=== PATIENT | female | born 1985 | race American Indian/Alaskan Native ===

== ENCOUNTER 2017-05-05 01:30 | Day surgery (SDC) | payer OTHER ==
[2017-05-05 02:12] VITALS: BP 109/70; TEMP 98.3; BMI 33.8
[2017-05-05 03:17] LABS: Bilirubin Small (Negative); Blood, Urine Negative (Negative); Clarity CLEAR (Clear); Glucose, Urine (Dipstick) Negative (Negative); Leukocyte Negative (Negative); Nitrite Negative (Negative); Protein, Urine (Dipstick) Trace mg/dL (Neg-Trace); Specific Gravity, Urine 1.035 (1.002-1.036)
[2017-05-05 03:22] LABS: Bacteria/HPF None Seen HPF (None Seen); Hyaline Casts/LPF 7-10 HYALINE CAST LPF (0-3 Hyaline); Pathc Cast-AUWi Flag 2.03 (0-2.49); RBC/HPF 0-3 HPF (0-3); Squamous Epithelial 0-3 HPF (0-3); WBC/HPF 0-3 HPF (0-3)
--- NOTE | 2017-05-05 03:28 | PDOC.LDHP ---
Labor and Delivery H&P Chief complaint: decreased movement HPI: Armando Gallardo is a 29 yo F at 36.3 weeks by first trimester U/S who presents today for decreased movement. She was seen at the [facility] yesterday, 05/04/17 , and it was recommended that she come to [facility] L&D for BPP and NST. Patient states that she has not felt the baby move in 2 days. She denies contractions, LOF, vaginal bleeding, or discharge. She did endorse 5 days of burning with urination. No fevers, upper respiratory symptoms. Upon arriving to the L&D, she states that she is now feeling the baby move around more. Current gestational age (weeks): 36 (36.3) Due date: 05/31/17 Dating criteria: first trimester ultrasound Grav: 4 Para: 2 OB History Details: Patient has had two prior sections and one AB. This has been unremarkable, she has had normal first and second trimester Ultrasounds and inital OB labs were all normal. She is scheduled for repeat section on 05/26 at 0730. Current complications: none Abnormal US findings: No Past Medical History: None Current medications: none Previous surgical history: low tranverse CS (X2) Social history: none - Physical Exam Vital signs reviewed and normal: yes General: NAD, resting Heart: RRR Lungs: CTAB Abdomen: NTTP Extremeties: no edema FHT: category 1 [place] contractions every: one contraction in a 20 min strip - OB Labs Blood type: A RH: positive Antibody Screen: negative HIV: negative RPR: negative HEPSAg: negative GBS: unknown Rubella: immune - Assessment Decreased movement - Plan Plan: observation in L&D (We will observe patient, get NST and BPP, check a UA due to dysuria.) <Neto Harris - Last Filed: 05/05/17 03:24> <Natalie Banks - Last Filed: 05/06/17 01:19> Allergies/Adverse Reactions: Allergies Allergy/AdvReac Type Severity Reaction Status Date / Time No Known Allergies Allergy Unverified 05/05/17 02:12 Attending Addendum - Attending Addendum I personally evaluated the patient and discussed the management with Dr. Harris and Dr. Ennis I agree with the History, Examination, Assessment and Plan documented above with any addition or exceptions noted below. +FM noted by mother during evaluation. NST/BPP = 12/23 UA negative. kick counts discussed. Chart provided. Precautions discussed. Patient to follow up later this week at [facility]. Roselia <Natalie Banks - Last Filed: 05/06/17 01:19>
--- NOTE | 2017-05-05 08:19 | ULT ---
BIOPHYSICAL PROFILE: Indications: Decreased movement. FINDINGS: movement: 2 tone: 2 breathin Amniotic fluid volume: 2 TOTAL SCORE: 8/8 Position: Vertex Heart Rate: 165 Placenta: Posterior. YANE: 13.4 cm Cervical length: 3.6 cm POS: [facility]
== END 2017-05-05 03:41 | disposition home or self-care (01) ==
LOC: L&D/OP 01:30
PROVIDERS: ATTEND Student in an Organized Health Care Education/Training Program
DX: O36.8130 Decreased fetal movements, third trimester, not applicable or unspecified (principal); Z3A.36 36 weeks gestation of pregnancy; Z98.891 History of uterine scar from previous surgery
CPT/HCPCS: 51701; 76819; 81001; 99283

== ENCOUNTER 2017-05-08 14:19 | Inpatient (IN) | payer MEDICAID, OTHER, SELFPAY ==
[~2017-05-08 14:19] MED LIST: Dexamethasone 20 MG/5 ML VIAL ONE; Ketorolac Tromethamine 30 MG/ML VIAL ONE; Ondansetron HCl/PF 4 MG/2 ML Vial ONE; PHENYLEPHRINE-NS 100 MCG/ML 10 ML SYRINGE ONE
[2017-05-08 15:03] VITALS: BMI 34.4
[2017-05-08] MEDS ORDERED: Acetaminophen 500 MG TAB PO SCH (15:45)
--- NOTE | 2017-05-08 15:52 | PDOC.LDHP ---
Labor and Delivery H&P HPI: Armando Gallardo is a 29 yo F at 36.6 weeks by first trimester U/S who presents today for decreased movement for 24 hours, LOF 5 days ago and some intermittent ctx. She complains of some lower abdominal pain. She denies bleeding. Other than the loss of fluid 5 days ago, she has not had vaginal discharge. complains of dysuria Current gestational age (weeks): 36 (+6) Due date: 05/30/17 Dating criteria: first trimester ultrasound Grav: 4 Para: 2 OB History Details: Patient has had two prior sections and one AB. This has been unremarkable, she has had normal first and second trimester Ultrasounds and inital OB labs were all normal. She is scheduled for repeat section on 05/26 at 0730. Current complications: none Abnormal US findings: No Past Medical History: none Previous surgical history: low tranverse CS (x2 in [place]) Allergies/Adverse Reactions: Allergies Allergy/AdvReac Type Severity Reaction Status Date / Time No Known Allergies Allergy Verified 05/08/17 14:58 Social history: none - Physical Exam General: NAD, resting Heart: RRR Lungs: CTAB Abdomen: NTTP (mildly tender diffusely but very soft and no rebound) Extremeties: no edema FHT: category 2 (Variabiltiy present. initially some tachycadia with baseline in 170. now baseline 160 with accels. no decels.) [place] contractions every: infrequent contractions with uterine irritability - OB Labs Blood type: A RH: positive Antibody Screen: negative HIV: negative RPR: negative HEPSAg: negative 1 hour GCT: negative GBS: unknown Urine drug screen: not done Rubella: immune - Assessment 1. Decreased movement with concern for loss of fluid- Since there has not been continued loss of fluid, i suspect that it may have not been amniotic fluid loss on thursday. Will evaluate with an amnisure and YANE. Will evaluate for abdominal pain with a VP3 and UA. I suspect initial tachycardia is from dehydration so we will encourage oral rehydration and monitor. will continue monitoring and order a BPP for decreased movement. Will treat pain with tylenol. - Plan Plan: observation in L&D
[2017-05-08 16:42] LABS: #Eosinphils 0.1 thou/uL (0.0-0.7); #Monocytes 0.7 thou/uL (0.11-0.59); #Neutrophils 9.3 thou/uL (1.40-6.50); %Basophils 0.2 % (0.0-1.0); %Eosinophils 1.1 % (0.0-10.0); %Lymphocytes 16.5 % (21.0-51.0); %Monocytes 5.4 % (0.0-10.0); %Neutrophils 76.8 % (42.0-75.0); Hemoglobin 11.1 g/dL (12.0-16.0); Mean Corpuscular HGB CONC 33.4 g/dL (32.0-36.0); Mean Corpuscular Hemoglobin 27.9 pg (27.0-31.0); Mean Corpuscular Volume 83.5 fl (81.0-99.0); Mean Platelet Volume 8.9 fL (7.4-10.4); Platelet Count 203 thou/uL (130-400); RBC Distribution Width 13.9 % (11.5-14.5); Red Blood Cell (RBC) Count 3.99 mill/uL (4.20-5.40); White Blood Cell (WBC) Count 12.1 thou/uL (4.8-10.8)
[2017-05-08] MEDS ORDERED: Promethazine HCl 25 MG/ML VIAL IM PRN (16:52)
[2017-05-08] MEDS ORDERED: Ondansetron HCl/PF 4 MG/2 ML Vial IVP PRN (16:52)
[2017-05-08] MEDS ORDERED: Bicitra 30 ML UDCUP PO SCH ×2 (17:00→21:45)
[2017-05-08] MEDS ORDERED: CEFAZOLIN/Water 2 GM/20 ML SYRINGE SLOW IVP SCH (17:00)
[2017-05-08 17:07] LABS: Bilirubin Negative (Negative); Blood, Urine Negative (Negative); Clarity CLEAR (Clear); Glucose, Urine (Dipstick) Negative (Negative); Leukocyte Small (Negative); Nitrite Negative (Negative); Protein, Urine (Dipstick) Negative (Neg-Trace); Specific Gravity, Urine 1.019 (1.002-1.036)
[2017-05-08 17:09] LABS: Bacteria/HPF Rare-Few HPF (None Seen); Hyaline Casts/LPF 4-6 HYALINE CAST LPF (0-3 Hyaline); Pathc Cast-AUWi Flag 1.49 (0-2.49); RBC/HPF 0-3 HPF (0-3)
[2017-05-08 17:12] LABS: Yeast-AUWi Flag 33.7 (0-25.0)
[2017-05-08 17:29] LABS: Hemoglobin 10.8 g/dL (12.0-16.0); Mean Corpuscular HGB CONC 33.7 g/dL (32.0-36.0); Mean Corpuscular Volume 83.1 fl (81.0-99.0); Mean Platelet Volume 9.1 fL (7.4-10.4); Platelet Count 208 thou/uL (130-400); RBC Distribution Width 13.8 % (11.5-14.5); Red Blood Cell (RBC) Count 3.87 mill/uL (4.20-5.40); White Blood Cell (WBC) Count 12.8 thou/uL (4.8-10.8)
[2017-05-08 17:31] LABS: Yeast-All Forms None Seen HPF (None Seen)
--- NOTE | 2017-05-08 17:41 | ULT ---
LIMITED ULTRASOUND BIOPHYSICAL PROFILE 05/08/17 HISTORY: Delayed movement. FINDINGS: A single live intrauterine gestation is seen with a heart rate of 168 beats per minute. Cervica l length measures 3 cm. The presentation is cephalic. Placenta is fundal. There is normal movement, tone, breathing movements and amniotic fluid volume. IMPRESSION: Ultrasound biophysical profile score is 8 out of 8. POS: [facility]
--- NOTE | 2017-05-08 17:45 | PDOC.LDPN ---
Labor & Delivery Progress Note - Subjective Subjective: comfortable - Objective Vital signs reviewed and normal: yes General: NAD, resting Uterine fundus: tender to palpation (mildly tender to palpation diffusely, but soft) Dilation: 0 Effacement: 0% Station: -3 FHT: category 1 (Category 1 now with baseline 150, accels, good variabilty. had period of 10-15 minutes of FHR of 180s. Could be extended accel. no clear decelerations. ) Resuscitative measures: maternal IV fluids -: at 36+6 by 1 T US. Patient is near term and is having episodes of increased HR that are longer than typical acclerations. We have a CBC that is slightly elevated, but not impressive in . As of now, we will observe in L&D with plan for delivery if patient has more clear signs of tachycardia or other issues. Right now, FHT and maternal vitals are WNL. Will conintue to monitor.
[2017-05-08 18:26] LABS: HBSAg Index 0.14 S/CO (0-0.99); Hep B Surf Ag Non-Reactive S/CO (NonReactive)
[2017-05-08 18:27] LABS: Syphilis Antibody Nonreactive (Nonreactive); Syphilis Antibody Index 0.02 S/CO (<1.00 Non-Reactive)
--- NOTE | 2017-05-08 20:44 | PDOC.LDPN ---
Labor & Delivery Progress Note - Subjective Subjective: painful contractions - Objective Vital signs reviewed and normal: yes General: other Uterine fundus: palpable contractions Dilation: closed Effacement: 0% Station: -3 FHT: category 1 - Assessment (1) contractions Code(s): O47.9 - FALSE LABOR, UNSPECIFIED Status: Acute Comment: Pt is having regular, painful contractions, refusing pain medication right now. Restarted fluids, strip is reassuring. tachycardia on arrival. Cervical exam was unchanged from before. Will continue to monitor and assess for labor, if making cervical change will need tonight. Plan: other <Arlen Guardado - Last Filed: 05/08/17 20:40> Assessment/Plan - Assessment/Plan Assessment: Reviewed with Dr. Villafuerte. Agree with p[calixto of management. <Willie Cisse - Last Filed: 05/13/17 08:07>
[2017-05-08] MEDS ORDERED: Lactated Ringer's 1,000 ML IV SCH (21:30)
[2017-05-08] MEDS ORDERED: PHENYLEPHRINE-NS 100 MCG/ML 10 ML SYRINGE ONE (22:11)
[2017-05-08] MEDS ORDERED: Morphine PF 1 MG/ML SYR ONE (22:12)
[2017-05-08] MEDS ORDERED: Fentanyl 100 MCG/2 ML VIAL ONE (22:12)
[2017-05-08] MEDS ORDERED: Oxytocin 10 UNITS/ML VIAL ONE (22:13)
[2017-05-08] MEDS ORDERED: Dexamethasone 4 mg/ml Vial ONE (22:13)
[2017-05-08] MEDS ORDERED: ePHEDrine/0.9% NaCl/PF SYRINGE 50 mg/10 ml ONE (22:13)
[2017-05-08] MEDS ORDERED: Ketorolac Tromethamine 30 MG/ML VIAL ONE (22:13)
[2017-05-08] MEDS ORDERED: Ondansetron HCl/PF 4 MG/2 ML Vial ONE (22:13)
--- NOTE | 2017-05-08 23:25 | PDOC.OPDEL ---
OB Operative/Delivery Note Delivery Dr/Surgeon: Emili Mandujano MD Attending: Candace Dunne MD Assist: Dorian Machado DO Pre-Delivery Diagnosis: non-reassuring tracing, other (suspected chorioamnionitis) Procedure/Post Delivery Dx: repeat low transverse CS Weeks gestation: 36 (36.6w) Anesthesia: spinal - Findings A Sex: female - 1 min: 8 - 5 min: 8 - Additional Findings/Plan Placenta delivered: manual removal findings: low transverse hysterotomy without extension Estimated blood loss: 700 mL Post delivery plan: routine recovery
[2017-05-09] MEDS ORDERED: Adacel (T-DAP) 0.5 ML VIAL IM ONE (01:55)
--- NOTE | 2017-05-09 02:07 | OP-2 ---
DATE OF PROCEDURE: 05/08/2017 RESIDENT SURGEON: Emili Mandujano MD. ATTENDING SURGEON: Zhang Dunne MD. ASSISTING RESIDENT: Conchita Machado DO PROCEDURE: Repeat low transverse . PREOPERATIVE DIAGNOSES: 1. Term intrauterine at 36.6 weeks. 2. Previous . 3. Suspected chorioamnionitis. POSTOPERATIVE DIAGNOSES: 1. Term intrauterine at 36.6 weeks. 2. Previous . 3. Suspected chorioamnionitis. 4. Placenta sent to pathology. ANESTHESIA: Spinal. INDICATIONS: The patient is a 31-year-old G4, P2-0-1-2 at 36.6 weeks' gestation who presented with concern for decreased movement with a history of a . The patient was monitored in observation and persistent tachycardia and abdominal pain was noted. Patient had suspected chorioamnionitis and was dispositioned for repeat section. PROCEDURE IN DETAIL: After risks, benefits, and alternatives were explained to patient, she gave informed consent. Preoperative antibiotics included cefazolin 2 grams IV. The patient was taken to the operating room, where spinal anesthesia was initiated. She was placed in the supine position with left tilt and prepped and draped in usual sterile fashion. A Pfannenstiel incision was made with scalpel and carried down to the level of the fascia, which was sharply nicked. The fascial cut was extended bilaterally with Delatorre scissors. Inferior and superior edges of the cut fascial edges were elevated with Lenka clamps and underlying rectus muscles were sharply dissected free. The recti were divided digitally and retracted manually. The peritoneum was entered bluntly and retracted manually. The Cj O was placed. A low transverse score was made with scalpel and the uterus was entered in the midline with the scalpel. Clear fluid was seen. The hysterotomy was extended manually. The infant was noted to be vertex, easily delivered by fundal pressure with nuchal cord x2 noted, which was easily reduced. Mouth and nares were bulb suctioned. Cord was clamped and cut and grossly normal. Female infant was handed to awaiting nurse. Cord blood was obtained. Placenta was manually extracted and found to be intact with three-vessel cord and sent to pathology for evaluation. The uterus was externalized and the endometrium was curetted with a dry lap. The uterus was closed with a running locking 1-0 Monocryl followed by an additional single 1-0 Monocryl [id number] stitch. Following this, hemostasis was noted. The abdomen was irrigated and suctioned free of clots. The Cj O was removed and the hysterotomy was again noted to be hemostatic. The fascia was closed with running nonlocking 0 PDS suture x2. The subcutaneous tissue was irrigated. There were no bleeders. Skin was approximated with saadia and the pressure dressing was placed. All counts were correct. Patient tolerated procedure well and was taken to recovery room in stable condition. ESTIMATED BLOOD LOSS: 700 mL. COMPLICATIONS: None. SPECIMENS: Cord blood sent to lab for blood type. FINDINGS: Grossly normal female infant with Apgars of 8 and 8. Grossly normal placenta with three-vessel cord sent to pathology for evaluation. DRAINS: Mccarthy to gravity draining clear urine. MTDD
[2017-05-09] MEDS: Lactated Ringer's 1,000 ML IV SCH ×2 (02:19→06:17)
[2017-05-09] MEDS ORDERED: Naloxone HCl 0.4 mg/ml Vial IVP PRN (02:36)
[2017-05-09] MEDS ORDERED: Promethazine HCl 25 MG SUPP PR PRN (02:36)
[2017-05-09] MEDS ORDERED: NO PO,IM,IV OR SC NARCOTICS FOR 12HR EXCEPT BY ANESTHESIA PO SCH (02:36)
[2017-05-09] MEDS ORDERED: Naloxone HCl 0.4 mg/ml Vial IV PRN ×2 (02:36)
[2017-05-09] MEDS ORDERED: Hydrocerin (Eucerin) Cream 120 gm Jar TOP PRN (02:36)
[2017-05-09] MEDS ORDERED: Ondansetron HCl/PF 4 MG/2 ML Vial IVP PRN (02:36)
[2017-05-09] MEDS ORDERED: diphenhydrAMINE 50 MG/ML VIAL IVP PRN (02:36)
[2017-05-09] MEDS ORDERED: Promethazine HCl 25 MG/ML VIAL IM PRN (02:36)
[2017-05-09] MEDS ORDERED: Ketorolac Tromethamine 30 MG/ML VIAL IVP PRN (02:36)
[2017-05-09] MEDS ORDERED: Ibuprofen 800 MG TAB PO SCH (06:00)
[2017-05-09 06:04] LABS: Hemoglobin 10.7 g/dL (12.0-16.0); Mean Corpuscular HGB CONC 32.3 g/dL (32.0-36.0); Mean Corpuscular Hemoglobin 27.4 pg (27.0-31.0); Mean Corpuscular Volume 84.6 fl (81.0-99.0); Mean Platelet Volume 9.1 fL (7.4-10.4); Platelet Count 205 thou/uL (130-400); RBC Distribution Width 13.8 % (11.5-14.5); Red Blood Cell (RBC) Count 3.93 mill/uL (4.20-5.40); White Blood Cell (WBC) Count 12.8 thou/uL (4.8-10.8)
[2017-05-09] MEDS: Prenatal Vitamin 1 TAB PO SCH (09:33)
--- NOTE | 2017-05-09 09:35 | PDOC.PP ---
Post Progress Note Post Day #: 0 Subjective: doing well, radhika po.No reg diet yet. Mccarthy still in as around 12 hrs postop PO intake tolerated: yes Flatus: no Ambulation: no Vital Signs (12 hours) Temp Pulse Resp BP Pulse Ox 05/09/17 08:12 97.8 F 59 L 20 05/09/17 08:02 97.8 F 59 L 20 98/55 L 05/09/17 04:00 98.2 F 58 L 18 107/56 L 05/09/17 02:40 98.2 F 65 18 102/58 L 96 05/09/17 01:35 97.9 F 71 18 115/55 L 96 Weight Weight 182 lb - Physical Examination General: NAD Cardiovascular: no m/r/g Respiratory: clear to auscultation bilaterally Abdominal: no distention, appropriately TTP Skin: CS incision dry & intact (BANDAGE INTACT) Neurological: no gross focal deficits Result Diagrams: 05/09/17 05:32 Additional Labs: Post Labs Blood Type A POSITIVE 05/08/17 17:20 Hep Bs Antigen Non-Reactive S/CO (NonReactive) 05/08/17 17:20 (1) S/P repeat low transverse Code(s): Z98.891 - HISTORY OF UTERINE SCAR FROM PREVIOUS SURGERY Status: Acute - Assessment/Plan Postop day 0 (12 hours). Patient seen with Jac lindsey. Doing well. Mccarthy out this PM Regular diet Follow temps..afebrile for now. Intrapartum care was suspicious for intrapartum chorio but not fully met criteria. Ancef given perioperatively but no Zmax. Follow for now...no evidence metritis
[2017-05-09] MEDS: HYDROcodone/Acetaminophen 5/325 mg Tablet PO PRN (19:48)
[2017-05-09] MEDS: Ibuprofen 800 MG TAB PO SCH (21:25)
[2017-05-09] MEDS: Simethicone Chewable 80 MG TAB PO PRN (21:26)
[2017-05-10] MEDS: Ibuprofen 800 MG TAB PO SCH ×3 (05:09→21:35)
[2017-05-10] MEDS: Simethicone Chewable 80 MG TAB PO PRN ×3 (05:10→21:35)
[2017-05-10] MEDS: HYDROcodone/Acetaminophen 5/325 mg Tablet PO PRN ×4 (05:10→21:35)
[2017-05-10] MEDS: Prenatal Vitamin 1 TAB PO SCH (09:52)
--- NOTE | 2017-05-10 12:14 | PDOC.PP ---
Post Progress Note Post Day #: 2 Subjective: Patient doing well. She has increased pain when up walking but improved with norco. Passing gas and tolerating food. normal lochia PO intake tolerated: yes Flatus: yes Ambulation: yes Vital Signs (12 hours) Temp Pulse Resp BP 05/10/17 08:05 98.5 F 76 16 94/53 L 05/10/17 05:05 98.3 F 80 20 96/50 L Weight Weight 82.554 kg - Physical Examination General: NAD Cardiovascular: no m/r/g, RRR Respiratory: clear to auscultation bilaterally, non-labored breathing Abdominal: + bowel sounds, lochia, appropriately TTP Fundus firm & at: umbilicus Extremities: negative homans (B) Skin: CS incision dry & intact, no rash Neurological: no gross focal deficits Psychiatric: A&Ox3, normal affect Result Diagrams: 05/09/17 05:32 Additional Labs: Post Labs Blood Type A POSITIVE 05/08/17 17:20 Hep Bs Antigen Non-Reactive S/CO (NonReactive) 05/08/17 17:20 (1) S/P repeat low transverse Code(s): Z98.891 - HISTORY OF UTERINE SCAR FROM PREVIOUS SURGERY Status: Acute - Assessment/Plan Postop day 2 (40 hours). Doing well. Mccarthy is out, continue walking ad [place] Regular diet Follow temps, has never had fever. Intrapartum care was suspicious for intrapartum chorio but not fully met criteria and no signs post . Ancef given perioperatively but no Zmax. Patient has continued to do well. Follow for now...no evidence metritis Likely ready for DC tomorrow <Norberto Barreto - Last Filed: 05/10/17 12:12> Vital Signs (12 hours) Temp Pulse Resp BP 05/10/17 19:35 98.7 F 72 18 112/65 Weight Weight 182 lb Result Diagrams: 05/09/17 05:32 Additional Labs: Post Labs Blood Type A POSITIVE 05/08/17 17:20 Hep Bs Antigen Non-Reactive S/CO (NonReactive) 05/08/17 17:20 <Delfino Livingston - Last Filed: 05/11/17 07:07> Attending Addendum - Attending Addendum Date/Time: 05/11/17 0707 I personally evaluated the patient and discussed the management with Dr. Barreto I agree with the History, Examination, Assessment and Plan documented above with any addition or exceptions noted below. <Delfino Livingston - Last Filed: 05/11/17 07:07>
[2017-05-11] MEDS: Simethicone Chewable 80 MG TAB PO PRN ×3 (03:05→21:40)
[2017-05-11] MEDS: HYDROcodone/Acetaminophen 5/325 mg Tablet PO PRN ×4 (03:07→22:01)
--- NOTE | 2017-05-11 08:06 | PDOC.PP ---
Post Progress Note Post Day #: 3 Subjective: Patient doing well this morning. Reports pain is more tolerable with [place]. Has been up walking around and took shower yesterday. Despite improvement in pain control, patient still reports abdominal pain. She is not feeling ready to go home today. PO intake tolerated: yes Flatus: yes Ambulation: yes Weight Weight 82.554 kg - Physical Examination General: NAD Cardiovascular: no m/r/g, RRR Respiratory: clear to auscultation bilaterally, non-labored breathing Abdominal: + bowel sounds, lochia, no distention, appropriately TTP Fundus firm & at: 2cm below umbilicus Extremities: negative homans (B) Skin: CS incision dry & intact Psychiatric: A&Ox3, normal affect Result Diagrams: 05/09/17 05:32 Additional Labs: Post Labs Blood Type A POSITIVE 05/08/17 17:20 Hep Bs Antigen Non-Reactive S/CO (NonReactive) 05/08/17 17:20 (1) S/P repeat low transverse Code(s): Z98.891 - HISTORY OF UTERINE SCAR FROM PREVIOUS SURGERY Status: Acute Comment: Postop day 3. - Patient improving but continues to report abdominal pain and is not ready to go home at this time. - Mccarthy is out, continue walking ad [place] - Regular diet - Follow temps, has never had fever. - Intrapartum care was suspicious for intrapartum chorio but criteria not fully met and no signs post . Ancef given perioperatively but no Zmax. - Continue to monitor pain. Educated patient on pain medication regimen and prn meds. Dispo: Likely d/c home tomorrow. <Madelaine Calderon - Last Filed: 05/11/17 08:04> Weight Weight 182 lb Result Diagrams: 05/09/17 05:32 Additional Labs: Post Labs Blood Type A POSITIVE 05/08/17 17:20 Hep Bs Antigen Non-Reactive S/CO (NonReactive) 05/08/17 17:20 <Delfino Livingston - Last Filed: 05/14/17 09:42> Attending Addendum - Attending Addendum Date/Time: 05/14/17 0942 I personally evaluated the patient and discussed the management with Dr. Calderon. I agree with the History, Examination, Assessment and Plan documented above with any addition or exceptions noted below. <Delfino Livingston - Last Filed: 05/14/17 09:42>
[2017-05-11] MEDS: Prenatal Vitamin 1 TAB PO SCH (08:25)
[2017-05-11] MEDS: Ibuprofen 800 MG TAB PO SCH ×3 (08:29→21:40)
[2017-05-12 00:19] VITALS: BP 110/64
[2017-05-12 06:09] VITALS: TEMP 98.5
[2017-05-12] MEDS: HYDROcodone/Acetaminophen 5/325 mg Tablet PO PRN (06:15)
[2017-05-12] MEDS: Ibuprofen 800 MG TAB PO SCH ×2 (06:15→13:47)
[2017-05-12] MEDS: Simethicone Chewable 80 MG TAB PO PRN (06:16)
--- NOTE | 2017-05-12 08:36 | PDOC.PP ---
Post Progress Note Post Day #: 4 Subjective: Patient is feeling much better this morning. She was able to get some rest yesterday and keep up with her pain using the Ibuprofen and [place]. No acute events overnight. PO intake tolerated: yes Flatus: yes Ambulation: yes Vital Signs (12 hours) Temp 05/12/17 04:30 98.5 F Weight Weight 82.554 kg - Physical Examination General: NAD Cardiovascular: no m/r/g, RRR Respiratory: clear to auscultation bilaterally, non-labored breathing Abdominal: + bowel sounds, lochia, no distention, appropriately TTP Fundus firm & at: 2cm below umbilicus Extremities: negative homans (B) Deviation from normal: CS incision is dry but does have some separation along the right side Neurological: no gross focal deficits Psychiatric: A&Ox3, normal affect Result Diagrams: 05/09/17 05:32 Additional Labs: Post Labs Blood Type A POSITIVE 05/08/17 17:20 Hep Bs Antigen Non-Reactive S/CO (NonReactive) 05/08/17 17:20 (1) S/P repeat low transverse Code(s): Z98.891 - HISTORY OF UTERINE SCAR FROM PREVIOUS SURGERY Status: Acute Comment: Postop day 4. - Patient improving. - Intrapartum care was suspicious for intrapartum chorio but criteria not fully met and no signs post . Ancef given perioperatively. - Home today with Ibuprofen and [place]. - Use steri strips on skin incision to allow closure. - F/u at [facility] in 3-4 days for staple removal. Dispo: Likely d/c home tomorrow.
[2017-05-12] MEDS: Prenatal Vitamin 1 TAB PO SCH (09:05)
== END 2017-05-12 14:25 | disposition home or self-care (01) | DRG 766 ==
LOC: L&D/OP 14:19 → L&D 20:49 → 3SW 05-09 01:29
PROVIDERS: ADMIT Obstetrics & Gynecology; ATTEND Obstetrics & Gynecology
PROC: 10D00Z1 Extraction of Products of Conception, Low, Open Approach (ICD-10-PCS; principal; 2017-05-08)
DX: O36.8130 Decreased fetal movements, third trimester, not applicable or unspecified (principal); E86.0 Dehydration; O34.211 Maternal care for low transverse scar from previous cesarean delivery; Z3A.36 36 weeks gestation of pregnancy; Z37.0 Single live birth; O76 Abnormality in fetal heart rate and rhythm complicating labor and delivery; O69.81X0 Labor and delivery complicated by cord around neck, without compression, not applicable or unspecified; O99.284 Endocrine, nutritional and metabolic diseases complicating childbirth
CPT/HCPCS: 36415; 51702; 76815; 81001; 85025; 85027; 86780; 86850; 86900; 86901; 87340; 87480; 87510; 87660; 99285; J1100; J1885; J2274; J2310; J2405; J2590; J3010